=== PATIENT | female | born 1945 | race Caucasian/White ===

== ENCOUNTER 2017-03-25 16:07 | Observation (INO) | payer OTHER ==
--- NOTE | 2017-03-25 16:24 | PDOC ---
History of Present Illness - General Chief Complaint: Chest Pain Stated Complaint: CHEST PAIN, LT SIDE NUMBNESS Time Seen by Provider: 03/25/17 16:23 Past History - Past Medical History Allergies/Adverse Reactions: Allergies Allergy/AdvReac Type Severity Reaction Status Date / Time No Known Allergies Allergy Verified 03/25/17 16:10 Home Medications: Ambulatory Orders Acetaminophen [Tylenol .Regular Strength -] 650 mg PO Q6H PRN 03/26/17 Alendronate Sodium [Binosto] 70 mg PO ASDIR 03/26/17 Amlodipine Bes/Olmesartan Med [Felisha 10-40 mg Tablet] 1 each PO DAILY 03/26/17 Aspirin [ASA -] 81 mg PO DAILY 03/26/17 Benzonatate 200 mg PO TID PRN 03/26/17 Calcium Carbonate [Oysco-500] 500 mg PO BID 03/26/17 Hydroxyurea [Hydrea] 500 mg PO ASDIR 03/26/17 Linagliptin/Metformin HCl [Jentadueto 2.5 mg-1000 mg Tab] 1 each PO ASDIR Multivit-Min/Iron Fum/Folic AC [Fjpda-Muojrfp-Cxprpxiq Tablet] 1 each PO DAILY 03/26/17 Aspirin [ASA -] 81 mg PO DAILY tab.chew 03/28/17 Atorvastatin Ca [Lipitor] 40 mg PO HS #30 tablet 03/28/17 Carvedilol [Coreg -] 3.125 mg PO BID #60 tablet 03/28/17 Hydralazine HCl [Apresoline -] 10 mg PO TID #90 tablet 03/28/17 Hydroxyurea [Hydrea 500Mg Capsule -] 500 mg PO MOWEFR@1000,2200 #30 tab Valsartan [Diovan] 320 mg PO DAILY #90 tablet 03/28/17 Valsartan [Diovan] 320 mg PO DAILY #90 tablet 03/28/17 Cancer: Yes (left breast mass 2007) Diabetes: Yes HTN: Yes - Psycho/Social/Smoking Cessation Hx Anxiety: No Suicidal Ideation: No Smoking History: Never smoked Have you smoked in the past 12 months: No Information on smoking cessation initiated: No Hx Alcohol Use: No Drug/Substance Use Hx: No Substance Use Type: None Hx Substance Use Treatment: No *Physical Exam - Vital Signs Last Vital Signs Temp Pulse Resp BP Pulse Ox 98.0 F 85 18 170/81 100 03/25/17 16:10 03/25/17 16:10 03/25/17 16:10 03/25/17 16:10 03/25/17 16:10 ED Treatment Course - LABORATORY CBC & Chemistry Diagram: 03/28/17 05:57 03/28/17 05:57 *DC/Admit/Observation/Transfer Diagnosis at time of Disposition: Chest pain Qualifiers: Chest pain type: unspecified Qualified Code(s): R07.9 - Chest pain, unspecified - Discharge Dispostion Disposition: HOME Condition at time of disposition: Stable - Prescriptions - Attestations Physician Attestion: 03/25/17 16:24 I, Dr. Tadeo Hagan, attest that this document has been prepared under my direction and personally reviewed by me in its entirety. I further attest, that it accurately reflects all work, treatment, procedures and medical decision -making performed by me.
--- NOTE | 2017-03-25 16:26 | PDOC ---
History of Present Illness - General History Source: Patient - History of Present Illness Presenting Symptoms: Chest Pain Timing/Duration: reports: intermittent Chest Pain Radiation: reports: back Activities at Onset: reports: rest <Phyllis Childress - Last Filed: 03/25/17 19:01> <Zach Dillon - Last Filed: 03/25/17 19:57> - General Chief Complaint: Chest Pain Stated Complaint: CHEST PAIN, LT SIDE NUMBNESS Time Seen by Provider: 03/25/17 16:23 Past History - Past Medical History Cancer: Yes (left breast mass 2007) Diabetes: Yes HTN: Yes - Psycho/Social/Smoking Cessation Hx Anxiety: No Suicidal Ideation: No Smoking History: Never smoked Have you smoked in the past 12 months: No Information on smoking cessation initiated: No Hx Alcohol Use: No Drug/Substance Use Hx: No Substance Use Type: None Hx Substance Use Treatment: No <Phyllis Childress Last Filed: 03/25/17 19:01> <Zach Dillon - Last Filed: 03/25/17 19:57> - Past Medical History Allergies/Adverse Reactions: Allergies Allergy/AdvReac Type Severity Reaction Status Date / Time No Known Allergies Allergy Verified 03/25/17 16:10 Home Medications: Ambulatory Orders Acetaminophen [Tylenol .Regular Strength -] 325 mg PO Q6H PRN 01/12/13 Amlodipine Besylate/Benazepril [Lotrel 5-20 mg Capsule] 1 cap PO DAILY 01/12/13 Aspirin 81 mg PO DAILY 01/12/13 Fenofibric Acid [Trilipix -] 135 mg PO DAILY 01/12/13 Hydroxyurea [Hydrea] 500 mg PO DAILY 01/12/13 Sitagliptin Phosphate [Januvia] 1 tab PO BID 01/12/13 Amoxicillin/Potassium Clav [Augmentin 875-125 Tablet] 1 each PO BID #8 tablet Azithromycin 250 mg PO DAILY #2 tablet 01/19/15 Review of Systems - Review of Systems Constitutional: No: Chills, Fever Respiratory: No: Cough, Shortness of Breath Cardiac (ROS): Yes: Chest Pain. No: Lightheadedness, Palpitations ABD/GI: No: Nausea, Vomiting <Phyllis Childress Last Filed: 03/25/17 19:01> *Physical Exam - Physical Exam General Appearance: Yes: Appropriately Dressed. No: Apparent Distress HEENT: positive: Normal Voice Neck: positive: Supple Respiratory/Chest: positive: Lungs Clear, Normal Breath Sounds. negative: Respiratory Distress Cardiovascular: positive: Regular Rate, S1, S2 Gastrointestinal/Abdominal: positive: Soft. negative: Tender Extremity: positive: Normal Inspection. negative: Pedal Edema Integumentary: positive: Dry, Warm Neurologic: positive: Fully Oriented, Alert, Normal Mood/Affect <Phyllis Childress - Last Filed: 03/25/17 19:01> - Vital Signs Last Vital Signs Temp Pulse Resp BP Pulse Ox 98.0 F 85 18 170/81 100 03/25/17 16:10 03/25/17 16:10 03/25/17 16:10 03/25/17 16:10 03/25/17 16:10 ED Treatment Course - LABORATORY CBC & Chemistry Diagram: 03/25/17 16:37 03/25/17 16:37 <Phyllis Childress - Last Filed: 03/25/17 19:01> - LABORATORY CBC & Chemistry Diagram: 03/25/17 16:37 03/25/17 16:37 <Zach Dillon - Last Filed: 03/25/17 19:57> - ADDITIONAL ORDERS Additional order review: Laboratory Results 03/25/17 03/25/17 16:37 16:37 Sodium 138 Potassium 4.5 Chloride 102 Carbon Dioxide 27 Anion Gap 9 BUN 19 H D Creatinine 1.1 H D Creat Clearance w eGFR 48.69 Random Glucose 243 H Calcium 8.7 Total Bilirubin 0.4 D AST 14 L ALT 21 D Alkaline Phosphatase 72 D Creatine Kinase 55 Troponin I < 0.02 B-Natriuretic Peptide 322.21 H Total Protein 7.8 D Albumin 4.1 D 03/25/17 16:37 RBC 3.03 L MCV 104.8 H MCHC 32.1 RDW 19.8 H D MPV 9.0 Neutrophils % 82.0 D Lymphocytes % 9.8 D Monocytes % 3.7 L Eosinophils % 2.2 Basophils % 2.3 H Medical Decision Making <Phyllis Childress - Last Filed: 03/25/17 19:01> <Zach Dillon - Last Filed: 03/25/17 19:57> - Medical Decision Making 03/25/17 16:25 71 yo F, HTN, HLD, essential thrombocytosis on hydroxyurea, breast ca, NIDDM, PNA, here w/ CP. Patient reports left-sided chest pain radiating to back, unable to describe, with an intensity of 5 out of 10 that lasts for 1 minute and then resolves. States symptoms recurred 2-3 times today. No exacerbating/ alleviating factors. Also reports feeling tired. No shortness of breath, diaphoresis, nausea, vomiting, palpitations, leg pain or swelling. States she' s had similar pain in the past. Denies any CAD. Denies any cp at present See exam CP intermittent, since resolved BP 170/81, stable otherwise and well yen w/ unremarkable exam R/o ACS vs PE, less likely dissection or PNA -ekg -asa -cxr -labs -dispo pending 03/25/17 17:04 03/25/17 17:40 ?TWI in leads V2-3 compared to prior ekg, as d/w ED attg. Trop pending. Anticipate admission to OBs for am stress 03/25/17 18:24 Case d/w hospitalist and pending trop, pt to go to tele obs. Discussed ? CTA r/ o PE w/ hospitalist given pt's hx of cancer and thromobocytosis, as per , will hold off for now 03/25/17 19:01 (Phyllis Childress) *DC/Admit/Observation/Transfer <Phyllis Childress - Last Filed: 03/25/17 19:01> - Discharge Dispostion Admit: Yes <Zach Dillon - Last Filed: 03/25/17 19:57> Diagnosis at time of Disposition: Chest pain Qualifiers: Chest pain type: unspecified Qualified Code(s): R07.9 - Chest pain, unspecified - Discharge Dispostion Condition at time of disposition: Stable
[2017-03-25 17:13] LABS: BASOPHIL 2.3 % (0-2.0); EOSINOPHIL 2.2 % (0-4.5); MCH 33.7 pg (25.7-33.7); MCHC 32.1 g/dl (32.0-36.0); MEAN CELL VOLUME 104.8 fl (80-96); PLATELET COUNT 531 K/MM3 (134-434); RDW 19.8 % (11.6-15.6); WHITE BLOOD COUNT 6.7 K/mm3 (4.0-10.0)
[2017-03-25 19:00] LABS: ANISOCYTOSIS 1+; PLATELET ESTIMATE SLT INCREASED (NORMAL); POLYCHROMASIA OCC
[2017-03-25 19:26] LABS: ALBUMIN 4.1 g/dl (3.4-5.0); ANION GAP 9 (8-16); BILIRUBIN,TOTAL 0.4 mg/dL (0.2-1.0); CALCIUM 8.7 mg/dL (8.5-10.1); CO2 27 mmol/L (21-32); CREATININE 1.1 mg/dL (0.55-1.02); GLUCOSE,RANDOM 243 mg/dL (74-106); SGOT/AST 14 U/L (15-37); SGPT/ALT 21 U/L (12-78); TOT PROT 7.8 g/dl (6.4-8.2)
[2017-03-25 19:29] LABS: ALK PHOS 72 U/L (45-117); TROPONIN I < 0.02 ng/ml (0.00-0.05)
--- NOTE | 2017-03-25 19:58 | HP ---
CHIEF COMPLAINT: Chest Pain, L- sided weakness PCP: HISTORY OF PRESENT ILLNESS: This is a 71 y/o female with a past medical history of Hypertension, HLD, DM, L - Breast Ca ( RT, lobectomy x2), Essential Thrombocythemia (on Hydroxyurea). Who presents to the emergency department with midsternal chest pain and left arm weakness since 2pm today. 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 Patient describes the chest pain as sharp, throbbing, with SOB. Patient reports the pain began after she ate while sitting at rest she states" It felt like the pain I had when my blood counts were up". Patient reports feeling weakness in her left arm- now resolved. Patient reports completing Azithromycin today for ?Bronchitis. Patient denies fever, chills, AP, N/V/D, constipation, dysuria. ER course was notable for: (1) Troponin I < 0.02 (2) EKG NSR 79 BPM TWI V2 V3 (3) Chest Xray- Recent Travel: None PAST MEDICAL HISTORY: See HPI PAST SURGICAL HISTORY: L- lumpectomy x2 Social History: Smoking: Never Alcohol: None Drugs: None Lives with family, not working Family History: Father- CVA, Mother -Dementia, Allergies No Known Allergies Allergy (Verified 03/25/17 16:10) HOME MEDICATIONS: Home Medications Medication Instructions Recorded Acetaminophen [Tylenol .Regular 325 mg PO Q6H PRN 01/12/13 Strength -] Amlodipine Besylate/Benazepril 1 cap PO DAILY 01/12/13 [Lotrel 5-20 mg Capsule] Aspirin 81 mg PO DAILY 01/12/13 Fenofibric Acid [Trilipix -] 135 mg PO DAILY 01/12/13 Hydroxyurea [Hydrea] 500 mg PO DAILY 01/12/13 Sitagliptin Phosphate [Januvia] 1 tab PO BID 01/12/13 Amoxicillin/Potassium Clav 1 each PO BID #8 tablet 01/19/15 [Augmentin 875-125 Tablet] Azithromycin 250 mg PO DAILY #2 tablet 01/19/15 REVIEW OF SYSTEMS CONSTITUTIONAL: Absent: fever, chills, diaphoresis, generalized weakness, malaise, loss of appetite, weight change HEENT: Absent: rhinorrhea, nasal congestion, throat pain, throat swelling, difficulty swallowing, mouth swelling, ear pain, eye pain, visual changes CARDIOVASCULAR: chest pain Absent: syncope, palpitations, irregular heart rate, lightheadedness, peripheral edema RESPIRATORY: shortness of breath Absent: cough, dyspnea with exertion, orthopnea, wheezing, stridor, hemoptysis GASTROINTESTINAL: Absent: abdominal pain, abdominal distension, nausea, vomiting, diarrhea, constipation, melena, hematochezia GENITOURINARY: Absent: dysuria, frequency, urgency, hesitancy, hematuria, flank pain, genital pain MUSCULOSKELETAL: Absent: myalgia, arthralgia, joint swelling, back pain, neck pain SKIN: Absent: rash, itching, pallor HEMATOLOGIC/IMMUNOLOGIC: Absent: easy bleeding, easy bruising, lymphadenopathy, frequent infections ENDOCRINE: Absent: unexplained weight gain, unexplained weight loss, heat intolerance, cold intolerance NEUROLOGIC: Absent: headache, focal weakness or paresthesias, dizziness, unsteady gait, seizure, mental status changes, bladder or bowel incontinence PSYCHIATRIC: Absent: anxiety, depression, suicidal or homicidal ideation, hallucinations. PHYSICAL EXAMINATION Vital Signs - 24 hr 03/25/17 16:10 Temperature 98.0 F Pulse Rate 85 Respiratory 18 Rate Blood Pressure 170/81 O2 Sat by Pulse 100 Oximetry (%) GENERAL: Awake, alert, and fully oriented, in no acute distress. HEAD: Normal with no signs of trauma. EYES: Pupils equal, round and reactive to light, extraocular movements intact, sclera anicteric, conjunctiva clear. No lid lag. EARS, NOSE, THROAT: Ears normal, nares patent, oropharynx clear without exudates. Dry mucous membranes. NECK: Normal range of motion, supple without lymphadenopathy, JVD, or masses. LUNGS: Breath sounds equal, clear to auscultation bilaterally. No wheezes, and no crackles. No accessory muscle use. HEART: Regular rate and rhythm, normal S1 and S2 without murmur, rub or gallop. ABDOMEN: Soft, nontender, not distended, normoactive bowel sounds, no guarding, no rebound, no masses. No hepatomegaly or splenomegaly. MUSCULOSKELETAL: Normal range of motion at all joints. No bony deformities or tenderness. No CVA tenderness. UPPER EXTREMITIES: 2+ pulses, warm, well-perfused. No cyanosis. No clubbing. No peripheral edema. LOWER EXTREMITIES: 2+ pulses, warm, well-perfused. No calf tenderness. +1 pitting LLE peripheral edema. NEUROLOGICAL: Cranial nerves II-XII intact. Normal speech. Gait not observed. PSYCHIATRIC: Cooperative. Good eye contact. Appropriate mood and affect. SKIN: Warm, dry, normal turgor, no rashes or lesions noted, normal capillary refill. Laboratory Results - last 24 hr 03/25/17 03/25/17 03/25/17 16:37 16:37 16:37 WBC 6.7 D RBC 3.03 L Hgb 10.2 L Hct 31.7 L MCV 104.8 H MCHC 32.1 RDW 19.8 H D Plt Count 531 H MPV 9.0 Neutrophils % 82.0 D Lymphocytes % 9.8 D Monocytes % 3.7 L Eosinophils % 2.2 Basophils % 2.3 H Differential Comment Slide scanned Platelet Estimate Slt increased Polychromasia Occ Anisocytosis 1+ Macrocytosis 1+ Sodium 138 Potassium 4.5 Chloride 102 Carbon Dioxide 27 Anion Gap 9 BUN 19 H D Creatinine 1.1 H D Creat Clearance w eGFR 48.69 Random Glucose 243 H Calcium 8.7 Total Bilirubin 0.4 D AST 14 L ALT 21 D Alkaline Phosphatase 72 D Creatine Kinase 55 Troponin I < 0.02 B-Natriuretic Peptide 322.21 H Total Protein 7.8 D Albumin 4.1 D ASSESSMENT/PLAN: This is a 71 y/o female with a PMHx of: HTN, HLD, Hypothyroidism. Placed in Tele Observation for further evaluation of their emergent condition. Plan: 1. Chest Pain r/o ME - Tele Monitoring - HEART Score 6 - JENNI Score 4 - EKG reviewed TWI in V2, V3 - CXR reviewed - Appreciate Cardiology Consult - Serial Enzymes neg x1 - Trend CE x2 - Echo in am - Asa 162mg given now (Asa 81mg taken at home) - HgbA1C, Lipid Panel in am 2. Hypertension - Sub Optimal - Monitor BP - Continue Bystolic, Norvasc, Diovan (substitute for Olemasartan) - Monitor renal function 3. Diabetes Mellitus - Not controlled - BGMs - ISS - Hold home med for better glycemic control - HgbA1C in am 4. Hypothyroidism - Continue Levothyroxine - TSH in am 5. Essential Thrombocythemia - Continue Hydroxyurea 6. FEN - Tolerates PO Fluids - Replete lytes prn - Low Na, Diabetic Diet 7. DVT Prophylaxis - OOB - SCDs Code Status: Full Code Problem List - Problem (1) Chest pain Code(s): R07.9 - CHEST PAIN, UNSPECIFIED Qualifiers: Qualified Code(s): R07.9 - Chest pain, unspecified (2) HTN (hypertension) Code(s): I10 - ESSENTIAL (PRIMARY) HYPERTENSION (3) Diabetes mellitus Code(s): E11.9 - TYPE 2 DIABETES MELLITUS WITHOUT COMPLICATIONS (4) Hyperlipidemia Code(s): E78.5 - HYPERLIPIDEMIA, UNSPECIFIED (5) Essential thrombocytosis Code(s): D47.3 - ESSENTIAL (HEMORRHAGIC) THROMBOCYTHEMIA (6) Osteoarthritis Code(s): M19.90 - UNSPECIFIED OSTEOARTHRITIS, UNSPECIFIED SITE (7) History of breast cancer Code(s): Z85.3 - PERSONAL HISTORY OF MALIGNANT NEOPLASM OF BREAST (8) DVT prophylaxis Code(s): DCO9896 - Visit type - Emergency Visit Emergency Visit: Yes ED Registration Date: 03/25/17 Care time: The patient presented to the Emergency Department on the above date and was hospitalized for further evaluation of their emergent condition. - New Patient This patient is new to me today: Yes Date on this admission: 03/25/17 - Critical Care Critical Care patient: No
[2017-03-25] MEDS ORDERED: ASPIRIN 81 MG CHEWABLE TABLETS PO ONE (21:25)
[2017-03-25] MEDS ORDERED: ASPIRIN 81 MG CHEWABLE TABLETS ONE (21:54)
[2017-03-25] MEDS: INSULIN SLIDING SCALE (NOVOLOG) 1 VIAL SQ SCH (23:13)
[2017-03-26] MEDS ORDERED: NEBIVOLOL 5 MG TABLET (FP) PO ONE (00:17)
[2017-03-26] MEDS ORDERED: guaiFENesin/D-M SUGAR-FREE/ACLHOL-FREE 118 ML BOTTLE PO PRN (00:30)
[2017-03-26 00:31] LABS: TROPONIN I < 0.02 ng/ml (0.00-0.05)
[2017-03-26] MEDS ORDERED: ACETAMINOPHEN 325 MG TABLET (FP) PO PRN (00:32)
[2017-03-26 05:33] LABS: BASOPHIL 0.6 % (0-2.0); EOSINOPHIL 2.8 % (0-4.5); MCH 33.4 pg (25.7-33.7); MCHC 32.4 g/dl (32.0-36.0); MEAN CELL VOLUME 103.4 fl (80-96); MEAN PLT VOLUME 8.6 fl (7.5-11.1); NEUTROPHILS 78.5 % (42.8-82.8); PLATELET COUNT 396 K/MM3 (134-434); RDW 19.3 % (11.6-15.6); WHITE BLOOD COUNT 4.9 K/mm3 (4.0-10.0)
[2017-03-26 06:05] LABS: ANION GAP 7 (8-16); CALCIUM 8.5 mg/dL (8.5-10.1); CO2 30 mmol/L (21-32); CREATININE 1.1 mg/dL (0.55-1.02); GLUCOSE,RANDOM 138 mg/dL (74-106); PHOSPHOROUS 3.7 mg/dL (2.5-4.9)
[2017-03-26 06:10] LABS: TROPONIN I < 0.02 ng/ml (0.00-0.05)
[2017-03-26] MEDS: INSULIN SLIDING SCALE (NOVOLOG) 1 VIAL SQ SCH ×3 (06:29→22:46)
[2017-03-26 06:58] LABS: CHOLESTEROL 106 mg/dL (50-200); LDL CHOLESTEROL (ONLY SJRH) 43 mg/dL (5-100)
[2017-03-26] MEDS: VALSARTAN 160 MG TABLET (UD) PO SCH (10:18)
[2017-03-26] MEDS: ASPIRIN 81 MG CHEWABLE TABLETS PO SCH (10:18)
[2017-03-26] MEDS: NEBIVOLOL 5 MG TABLET (FP) PO SCH (10:18)
[2017-03-26] MEDS: HYDROXYUREA 500 MG CAPSULE PO SCH (10:19)
[2017-03-26] MEDS: MULTIVITAMINS (DAILY MVI) TABLET (FP) PO SCH (10:19)
[2017-03-26] MEDS: amLODIPine BESYLATE 10 MG TABLET (FP) PO SCH (10:19)
[2017-03-26 17:09] VITALS: BMI 21.4
--- NOTE | 2017-03-26 17:44 | CON.CARD ---
Cardiology Consult (text) - Consultation Consultation Note: CC: CP 71 y/o with h/o htn, HLD, DM, L- Breast Ca s/p xrt and surgery, Essential Thrombocytosis (on Hydroxyurea) who p/w CP. endorses chronic episodes of dyspnea lasting about 5 minutes, non-exertional stable. Have occurred since her surgery for breast CA. endorses intermittent chest heaviness sometimes associated with breathing difficulty, non-exertional On presentation had more severe episode of chest heaviness with radiation down left arm. + associated dyspnea. Had 3 episodes each lasting about 5 minutes. Currently CP free. No episodes since yesterday. No johns, can walk up a flight of stairs without anginal symptoms. no orthopnea, pnd, le edema, palps, dizziness. bleeding. Patient denies fever, chills, sweats, AP, N/V/D, cough, congestion, visual disturbances PAST MEDICAL HISTORY/PAST SURGICAL HISTORY: per hpi, L- lumpectomy x2 Social History: Smoking: Never Alcohol: None Drugs: None Lives with family, not working Family History: Father- CVA, Mother -Dementia, ROS: per hpi Ambulatory Orders Acetaminophen [Tylenol -] 650 mg PO Q6H PRN 03/26/17 Alendronate Sodium [Binosto] 70 mg PO ASDIR 03/26/17 Amlodipine Bes/Olmesartan Med [Felisha 10-40 mg Tablet] 1 each PO DAILY 03/26/17 Aspirin [ASA -] 81 mg PO DAILY 03/26/17 Benzonatate 200 mg PO TID PRN 03/26/17 Calcium Carbonate [Oysco-500] 500 mg PO BID 03/26/17 Hydroxyurea [Hydrea] 500 mg PO ASDIR 03/26/17 Linagliptin/Metformin HCl [Jentadueto 2.5 mg-1000 mg Tab] 1 each PO ASDIR Multivit-Min/Iron Fum/Folic AC [Lszbd-Lnyevsq-Akmusxjf Tablet] 1 each PO DAILY 03/26/17 Nebivolol HCl [Bystolic] 5 mg PO DAILY 03/26/17 Current Medications Acetaminophen (Tylenol -) 650 mg PO Q6H PRN PRN Reason: FEVER OR PAIN Amlodipine Besylate (Norvasc -) 10 mg PO DAILY JULIA Last Admin: 03/26/17 10:19 Dose: 10 mg Aspirin (Asa -) 81 mg PO DAILY [facility] Last Admin: 03/26/17 10:18 Dose: 81 mg Guaifenesin (Diabetic Tussin Dm -) 10 ml PO Q6H PRN PRN Reason: COUGH Hydroxyurea (Hydrea -) 500 mg PO SuTuThSa@1000 [facility] Last Admin: 03/26/17 10:19 Dose: 500 mg Hydroxyurea (Hydrea -) 500 mg PO MOWEFR@1000,2200 [facility] Insulin Aspart (Novolog Vial Sliding Scale -) 1 vial SQ ACHS [facility] PRN Reason: Protocol Last Admin: 03/26/17 17:26 Dose: 2 units Multivitamins/Minerals/Vitamin C (Tab-A-Vit -) 1 tab PO DAILY [facility] Last Admin: 03/26/17 10:19 Dose: 1 tab Nebivolol (Bystolic -) 5 mg PO DAILY [facility] Last Admin: 03/26/17 10:18 Dose: 5 mg Valsartan (Diovan -) 320 mg PO DAILY [facility] Last Admin: 03/26/17 10:18 Dose: 320 mg Vital Signs - 24 hr 03/25/17 03/25/17 03/26/17 22:00 23:09 01:19 Temperature 98.0 F 98.0 F 98.1 F Pulse Rate Pulse Rate [ 73 70 76 Right Radial] Respiratory 20 20 19 Rate Blood Pressure Blood Pressure 142/73 140/80 134/70 [Left Arm] O2 Sat by Pulse 95 95 95 Oximetry (%) 03/26/17 03/26/17 03/26/17 05:17 06:20 07:05 Temperature 98 F 98.2 F Pulse Rate Pulse Rate [ 70 68 Right Radial] Respiratory 20 20 20 Rate Blood Pressure Blood Pressure 123/70 138/70 [Left Arm] O2 Sat by Pulse 95 95 95 Oximetry (%) 03/26/17 03/26/17 03/26/17 08:28 12:31 15:58 Temperature 97.8 F 97.8 F Pulse Rate 74 Pulse Rate [ 68 61 Right Radial] Respiratory 18 18 18 Rate Blood Pressure 155/59 Blood Pressure 165/72 148/68 [Left Arm] O2 Sat by Pulse 97 97 94 L Oximetry (%) Intake & Output 03/24/17 03/25/17 03/26/17 03/27/17 07:59 07:59 07:59 07:59 Weight 104 lb 121 lb nad, calm jvd flat, neck supple ctab, nl effort RRR nl s1 s2 no mrg no ttp of sternum + bs soft nt nd ext without e/c/c no carotid bruits aaox3 no jaundice, diaphoresis CBC, BMP 03/26/17 05:30 03/26/17 05:30 Laboratory Tests 03/25/17 03/25/17 03/25/17 16:37 16:37 23:35 Hemoglobin A1c % Magnesium Total Bilirubin 0.4 D AST 14 L ALT 21 D Alkaline Phosphatase 72 D Creatine Kinase 55 39 Troponin I < 0.02 < 0.02 B-Natriuretic Peptide 322.21 H Albumin 4.1 D Triglycerides Cholesterol Total LDL Cholesterol HDL Cholesterol 03/26/17 03/26/17 03/26/17 05:30 05:30 05:30 Hemoglobin A1c % 7.1 H Magnesium 2.0 Total Bilirubin AST ALT Alkaline Phosphatase Creatine Kinase 35 Troponin I < 0.02 B-Natriuretic Peptide Albumin Triglycerides Cholesterol Total LDL Cholesterol HDL Cholesterol 03/26/17 05:30 Hemoglobin A1c % Magnesium Total Bilirubin AST ALT Alkaline Phosphatase Creatine Kinase Troponin I B-Natriuretic Peptide Albumin Triglycerides 369 H Cholesterol 106 Total LDL Cholesterol 43 HDL Cholesterol 24 L EKG: SR, leftward axis. no ischemic changes tele: SR. 71 y/o with h/o htn, HLD, DM, L- Breast Ca s/p xrt and surgery, Essential Thrombocytosis (on Hydroxyurea) who p/w CP. CP - CE's neg x 3. EKG unremarkable. symptoms atypical for cardiac pain, but given risk factors agree with pursuing stress testing. echo and stress test already ordered by primary team. - Con't asa. LDL 43 would not benefit from statin therapy. elevated tg's. --> diabetes management per pmd. Will switch bystolic to carvedilol. Can consider lovaza. htn - medication adjustments as mentioned. hypertriglyceridemia - plan outlined above.
--- NOTE | 2017-03-26 21:48 | PN ---
Physical Exam: SUBJECTIVE: Patient seen and examined. Denies chest pain, SOB, palpitations. OBJECTIVE: Vital Signs Period Temp Pulse Resp BP Sys/Mazariegos Pulse Ox Last 24 Hr 97.8 F-98.2 F 61-76 18-20 123-165/59-80 94-97 GENERAL: The patient is awake, alert, and fully oriented, in no acute distress. LUNGS: Breath sounds equal, clear to auscultation bilaterally, no wheezes, no crackles, no accessory muscle use. HEART: Regular rate and rhythm, S1, S2 without murmur, rub or gallop. ABDOMEN: Soft, nontender, nondistended, normoactive bowel sounds, no guarding, no rebound EXTREMITIES: 2+ pulses, warm, well-perfused, trace pedal edema NEUROLOGICAL: Cranial nerves II through XII grossly intact. Normal speech, gait not observed. Laboratory Results - last 24 hr 03/25/17 03/26/17 03/26/17 23:35 05:24 05:30 WBC RBC Hgb Hct MCV MCHC RDW Plt Count MPV Neutrophils % Lymphocytes % Monocytes % Eosinophils % Basophils % Sodium Potassium Chloride Carbon Dioxide Anion Gap BUN Creatinine POC Glucometer [phone] Random Glucose Hemoglobin A1c % Calcium Phosphorus Magnesium Creatine Kinase 39 35 Troponin I < 0.02 < 0.02 Triglycerides Cholesterol Total LDL Cholesterol HDL Cholesterol 03/26/17 03/26/17 03/26/17 05:30 05:30 05:30 WBC 4.9 RBC 2.79 L Hgb 9.3 L Hct 28.9 L MCV 103.4 H MCHC 32.4 RDW 19.3 H Plt Count 396 D MPV 8.6 Neutrophils % 78.5 Lymphocytes % 13.8 D Monocytes % 4.3 Eosinophils % 2.8 Basophils % 0.6 Sodium 141 Potassium 4.0 Chloride 104 Carbon Dioxide 30 Anion Gap 7 L BUN 24 H D Creatinine 1.1 H POC Glucometer Random Glucose 138 H D Hemoglobin A1c % 7.1 H Calcium 8.5 Phosphorus 3.7 Magnesium 2.0 Creatine Kinase Troponin I Triglycerides Cholesterol Total LDL Cholesterol HDL Cholesterol 03/26/17 03/26/17 03/26/17 05:30 12:39 17:25 WBC RBC Hgb Hct MCV MCHC RDW Plt Count MPV Neutrophils % Lymphocytes % Monocytes % Eosinophils % Basophils % Sodium Potassium Chloride Carbon Dioxide Anion Gap BUN Creatinine POC Glucometer [phone] Random Glucose Hemoglobin A1c % Calcium Phosphorus Magnesium Creatine Kinase Troponin I Triglycerides 369 H Cholesterol 106 Total LDL Cholesterol 43 HDL Cholesterol 24 L Active Medications Generic Name Dose Route Start Last Admin Trade Name Claudine PRN Reason Stop Dose Admin Acetaminophen 650 mg 03/26/17 00:32 Tylenol - PO Q6H PRN FEVER OR PAIN Amlodipine Besylate 10 mg 03/26/17 10:00 03/26/17 10:19 Norvasc - PO 10 mg DAILY JULIA Administration Aspirin 81 mg 03/26/17 10:00 03/26/17 10:18 Asa - PO 81 mg DAILY JULIA Administration Guaifenesin 10 ml 03/26/17 00:30 Diabetic Tussin Dm - PO Q6H PRN COUGH Hydroxyurea 500 mg 03/26/17 10:00 03/26/17 10:19 Hydrea - PO 500 mg SuTuThSa@1000 JULIA Administration Hydroxyurea 500 mg 03/28/17 10:00 Hydrea - PO MOWEFR@1000,2200 JULIA Insulin Aspart 1 vial 03/25/17 22:00 03/26/17 17:26 Novolog Vial Sliding Scale - SQ 2 units ACHS JULIA Administration Protocol Multivitamins/Minerals/Vitamin C 1 tab 03/26/17 10:00 03/26/17 10:19 Tab-A-Vit - PO 1 tab DAILY JULIA Administration Nebivolol 5 mg 03/26/17 10:00 03/26/17 10:18 Bystolic - PO 5 mg DAILY JULIA Administration Valsartan 320 mg 03/26/17 10:00 03/26/17 10:18 Diovan - PO 320 mg DAILY JULIA Administration ASSESSMENT/PLAN: 71 year-old female with a PMH of HTN, HLD, NIDDM, hypothyroidism, breast cancer (radiation, lobectomy x 2), essential thrombocytosis. Just finished zpak for bronchitis. Chest pain --r/o ACS: troponins negative x 3; ECG not suggestive of acute ischemic event ; echo ordered; stress test ordered if cardiology deems necessary --r/o infection: afebrile, no leukocytosis, no discrete infiltrates on CXR; observe off antibiotics --r/o PE: Wells score 0, low suspicion for PE, no further workup indicated Hypertension --serial readings have been elevated --start hydralazine 10mg TID --continue valsartan, bystolic Hyperlipidemia --start Lipitor 40mg NIDDM --Novolog sliding scale coverage Hypothyroidism --not on medication --check TSH Breast cancer --no acute issues Essential thrombocytosis --continue hydroxyurea F/E/N Fluids: PO intake adequate Electrolytes: replete as indicated Nutrition: low sodium DVT prophylaxis: subq heparin, oob, ambulation Dispo: continues to require inpatient care. Full Code. Visit type - Emergency Visit Emergency Visit: Yes ED Registration Date: 03/25/17 Care time: The patient presented to the Emergency Department on the above date and was hospitalized for further evaluation of their emergent condition. - New Patient This patient is new to me today: Yes Date on this admission: 03/26/17 - Critical Care Critical Care patient: No
[2017-03-26] MEDS ORDERED: ATORVASTATIN CA 40 MG TABLET (FP) PO SCH (22:00)
[2017-03-26] MEDS: HEPARIN NA (PORCINE) 5,000 UNITS/ML 1ML VIAL SQ SCH (22:45)
[2017-03-26] MEDS: hydrALAZINE HCL 10 MG TABLET PO SCH (22:46)
[2017-03-27] MEDS: hydrALAZINE HCL 10 MG TABLET PO SCH ×3 (06:39→21:18)
[2017-03-27] MEDS: INSULIN SLIDING SCALE (NOVOLOG) 1 VIAL SQ SCH ×4 (06:39→21:22)
[2017-03-27 07:41] LABS: MCH 34.3 pg (25.7-33.7); MCHC 33.3 g/dl (32.0-36.0); MEAN CELL VOLUME 103.1 fl (80-96); MEAN PLT VOLUME 9.2 fl (7.5-11.1); PLATELET COUNT 391 K/MM3 (134-434); RDW 18.9 % (11.6-15.6); WHITE BLOOD COUNT 4.9 K/mm3 (4.0-10.0)
[2017-03-27 08:11] LABS: ALBUMIN 3.6 g/dl (3.4-5.0); ANION GAP 8 (8-16); BILIRUBIN,TOTAL 0.5 mg/dL (0.2-1.0); CALCIUM 8.3 mg/dL (8.5-10.1); CO2 28 mmol/L (21-32); GLUCOSE,RANDOM 212 mg/dL (74-106); MAGNESIUM 1.9 mg/dL (1.8-2.4); SGOT/AST 13 U/L (15-37); SGPT/ALT 17 U/L (12-78); TOT PROT 6.7 g/dl (6.4-8.2)
[2017-03-27 08:19] LABS: ALK PHOS 63 U/L (45-117); THYROID STIMULATING HORMONE 0.49 uIU/ml (0.358-3.74)
[2017-03-27] MEDS: MULTIVITAMINS (DAILY MVI) TABLET (FP) PO SCH (09:10)
[2017-03-27] MEDS: VALSARTAN 160 MG TABLET (UD) PO SCH (09:10)
[2017-03-27] MEDS: ASPIRIN 81 MG CHEWABLE TABLETS PO SCH (09:10)
[2017-03-27] MEDS: NEBIVOLOL 5 MG TABLET (FP) PO SCH (09:10)
[2017-03-27] MEDS: amLODIPine BESYLATE 10 MG TABLET (FP) PO SCH (09:10)
[2017-03-27] MEDS: PANTOPRAZOLE 40 MG TABLET (FP) PO SCH (09:10)
[2017-03-27] MEDS: HEPARIN NA (PORCINE) 5,000 UNITS/ML 1ML VIAL SQ SCH ×2 (09:11→21:18)
[2017-03-27] MEDS: HYDROXYUREA 500 MG CAPSULE PO SCH (09:11)
[2017-03-27 09:39] LABS: ANISOCYTOSIS 1+; HYPOCHROMIA FEW; PLATELET ESTIMATE ADEQUATE (NORMAL); POLYCHROMASIA FEW
[2017-03-27] MEDS ORDERED: INSULIN (NOVOLOG) ASPART 100 UNITS/ML 10ML VIAL ONE (11:37)
--- NOTE | 2017-03-27 14:21 | PN ---
Physical Exam: SUBJECTIVE: Patient seen and examined oob to chair. No chest pain, SOB, palpitations. OBJECTIVE: Vital Signs Period Temp Pulse Resp BP Sys/Mazariegos Pulse Ox Last 24 Hr 97.4 F-98.8 F 62-76 18-20 132-165/59-78 94-99 GENERAL: The patient is awake, alert, and fully oriented, in no acute distress. LUNGS: Breath sounds equal, clear to auscultation bilaterally, no wheezes, no crackles, no accessory muscle use. HEART: Regular rate and rhythm, S1, S2 without murmur, rub or gallop. ABDOMEN: Soft, nontender, nondistended, normoactive bowel sounds, no guarding, no rebound EXTREMITIES: 2+ pulses, warm, well-perfused, trace pedal edema NEUROLOGICAL: Cranial nerves II through XII grossly intact. Normal speech, gait not observed. Laboratory Results - last 24 hr 03/26/17 03/26/17 03/27/17 17:25 22:42 05:35 WBC 4.9 RBC 2.90 L Hgb 10.0 L Hct 29.9 L MCV 103.1 H MCHC 33.3 RDW 18.9 H Plt Count 391 MPV 9.2 Neutrophils % 76.0 Lymphocytes % 18.0 D Monocytes % 4.0 Eosinophils % 2.0 Hypersegmented Neuts 1+ Platelet Estimate Adequate Platelet Comment No clumping noted Polychromasia Few Hypochromic-Microcytic Few Anisocytosis 1+ Macrocytosis 1+ Sodium Potassium Chloride Carbon Dioxide Anion Gap BUN Creatinine Creat Clearance w eGFR POC Glucometer 185 229 Random Glucose Calcium Magnesium Total Bilirubin AST ALT Alkaline Phosphatase Total Protein Albumin TSH 03/27/17 03/27/17 03/27/17 05:35 06:15 11:18 WBC RBC Hgb Hct MCV MCHC RDW Plt Count MPV Neutrophils % Lymphocytes % Monocytes % Eosinophils % Hypersegmented Neuts Platelet Estimate Platelet Comment Polychromasia Hypochromic-Microcytic Anisocytosis Macrocytosis Sodium 139 Potassium 4.6 Chloride 103 Carbon Dioxide 28 Anion Gap 8 BUN 24 H Creatinine 1.0 Creat Clearance w eGFR 54.35 POC Glucometer 239 222 Random Glucose 212 H D Calcium 8.3 L Magnesium 1.9 Total Bilirubin 0.5 D AST 13 L ALT 17 Alkaline Phosphatase 63 Total Protein 6.7 Albumin 3.6 TSH 0.49 Current Medications Generic Name Dose Route Start Last Admin Trade Name Freq PRN Reason Stop Dose Admin Acetaminophen 650 mg 03/26/17 00:32 Tylenol - PO Q6H PRN FEVER OR PAIN Amlodipine Besylate 10 mg 03/26/17 10:00 03/27/17 09:10 Norvasc - PO 10 mg DAILY JULIA Administration Aspirin 81 mg 03/26/17 10:00 03/27/17 09:10 Asa - PO 81 mg DAILY JULIA Administration Carvedilol 3.125 mg 03/28/17 10:00 Coreg - PO BID JULIA Guaifenesin 10 ml 03/26/17 00:30 Diabetic Tussin Dm - PO Q6H PRN COUGH Heparin Sodium (Porcine) 5,000 unit 03/26/17 22:00 03/27/17 09:11 Heparin - SQ 5,000 unit BID JULIA Administration Hydralazine HCl 10 mg 03/26/17 22:00 03/27/17 06:39 Apresoline - PO 10 mg TID JULIA Administration Hydroxyurea 500 mg 03/26/17 10:00 03/27/17 09:11 Hydrea - PO 500 mg SuTuThSa@1000 JULIA Administration Hydroxyurea 500 mg 03/28/17 10:00 Hydrea - PO MOWEFR@1000,2200 [facility] Insulin Aspart 1 vial 03/25/17 22:00 03/27/17 11:42 Novolog Vial Sliding Scale - SQ 4 units ACHS JULIA Administration Protocol Multivitamins/Minerals/Vitamin C 1 tab 03/26/17 10:00 03/27/17 09:10 Tab-A-Vit - PO 1 tab DAILY JULIA Administration Pantoprazole Sodium 40 mg 03/27/17 10:00 03/27/17 09:10 Protonix - PO 40 mg DAILY JULIA Administration Valsartan 320 mg 03/26/17 10:00 03/27/17 09:10 Diovan - PO 320 mg DAILY JULIA Administration ASSESSMENT/PLAN 71 year-old female with a PMH of HTN, HLD, NIDDM, hypothyroidism, breast cancer (radiation, lobectomy x 2), essential thrombocytosis. Just finished zpak for bronchitis. Chest pain --r/o ACS: troponins negative x 3; ECG not suggestive of acute ischemic event ; echo and stress tomorrow; continue ASA, beta angelica --r/o infection: afebrile, no leukocytosis, no discrete infiltrates on CXR; observe off antibiotics --r/o PE: Wells score 0, low suspicion for PE, no further workup indicated Hypertension --BP better controlled with addition of hydralazine --switch bystolic to carvedilol 3.125mg BID --continue valsartan Hyperlipidemia --stop statin since LDL 43 NIDDM --Novolog sliding scale coverage Hypothyroidism --not on medication --TSH wnl Breast cancer --no acute issues Essential thrombocytosis --continue hydroxyurea F/E/N Fluids: PO intake adequate Electrolytes: replete as indicated Nutrition: low sodium DVT prophylaxis: subq heparin, oob, ambulation Dispo: continues to require inpatient care. Full Code. Visit type - Emergency Visit Emergency Visit: Yes ED Registration Date: 03/25/17 Care time: The patient presented to the Emergency Department on the above date and was hospitalized for further evaluation of their emergent condition. - New Patient This patient is new to me today: No - Critical Care Critical Care patient: No
--- NOTE | 2017-03-27 15:12 | PN ---
Progress Note (short form) - Note Progress Note: CC: CP S: no recurrence of cp. no sob, palps, dizziness Current Medications Acetaminophen (Tylenol -) 650 mg PO Q6H PRN PRN Reason: FEVER OR PAIN Amlodipine Besylate (Norvasc -) 10 mg PO DAILY [facility] Last Admin: 03/27/17 09:10 Dose: 10 mg Aspirin (Asa -) 81 mg PO DAILY [facility] Last Admin: 03/27/17 09:10 Dose: 81 mg Carvedilol (Coreg -) 3.125 mg PO BID [facility] Guaifenesin (Diabetic Tussin Dm -) 10 ml PO Q6H PRN PRN Reason: COUGH Heparin Sodium (Porcine) (Heparin -) 5,000 unit SQ BID [facility] Last Admin: 03/27/17 09:11 Dose: 5,000 unit Hydralazine HCl (Apresoline -) 10 mg PO TID [facility] Last Admin: 03/27/17 06:39 Dose: 10 mg Hydroxyurea (Hydrea -) 500 mg PO SuTuThSa@1000 [facility] Last Admin: 03/27/17 09:11 Dose: 500 mg Hydroxyurea (Hydrea -) 500 mg PO MOWEFR@1000,2200 [facility] Insulin Aspart (Novolog Vial Sliding Scale -) 1 vial SQ ACHS [facility] PRN Reason: Protocol Last Admin: 03/27/17 11:42 Dose: 4 units Multivitamins/Minerals/Vitamin C (Tab-A-Vit -) 1 tab PO DAILY [facility] Last Admin: 03/27/17 09:10 Dose: 1 tab Pantoprazole Sodium (Protonix -) 40 mg PO DAILY [facility] Last Admin: 03/27/17 09:10 Dose: 40 mg Valsartan (Diovan -) 320 mg PO DAILY [facility] Last Admin: 03/27/17 09:10 Dose: 320 mg Vital Signs - 24 hr 03/26/17 03/26/17 03/26/17 15:58 17:00 21:00 Temperature 97.8 F 98.0 F 98.6 F Pulse Rate 74 76 74 Respiratory 18 18 20 Rate Blood Pressure 155/59 165/78 145/74 O2 Sat by Pulse 94 L 96 Oximetry (%) 03/27/17 03/27/17 03/27/17 02:00 07:00 08:00 Temperature 98.8 F 98.2 F 97.4 F L Pulse Rate 62 68 66 Respiratory 20 20 20 Rate Blood Pressure 135/68 132/66 146/67 O2 Sat by Pulse Oximetry (%) 03/27/17 03/27/17 09:00 15:01 Temperature 98.4 F Pulse Rate 66 Respiratory 20 Rate Blood Pressure 120/62 O2 Sat by Pulse 99 Oximetry (%) Intake & Output 03/25/17 03/26/17 03/27/17 03/28/17 07:59 07:59 07:59 07:59 Intake Total 480 Balance 480 Weight 104 lb 121 lb nad, calm jvd flat, neck supple ctab, nl effort RRR nl s1 s2 no mrg no ttp of sternum + bs soft nt nd ext without e/c/c no carotid bruits aaox3 no jaundice, diaphoresis CBC, BMP 03/27/17 05:35 03/27/17 05:35 Laboratory Tests 03/27/17 05:35 Magnesium 1.9 Total Bilirubin 0.5 D AST 13 L ALT 17 Alkaline Phosphatase 63 Albumin 3.6 TSH 0.49 EKG: SR, leftward axis. no ischemic changes tele: SR, occ pvc. 71 y/o with h/o htn, HLD, DM, L- Breast Ca s/p xrt and surgery, Essential Thrombocytosis (on Hydroxyurea) who p/w CP. CP - CE's neg x 3. EKG unremarkable. symptoms atypical for cardiac pain, but given risk factors agree with pursuing stress testing. echo and stress test already ordered by primary team. - Con't asa. LDL 43 would not benefit from statin therapy. elevated tg's. --> diabetes management per pmd. switched bystolic to carvedilol. Can consider lovaza if stress test positive. htn - well controlled on current regimen. Hydralazine added overnight. hypertriglyceridemia - plan outlined above.
--- NOTE | 2017-03-27 21:49 | EKG ---
Test Reason : Blood Pressure : / mmHG Vent. Rate : 079 BPM Atrial Rate : 079 BPM P-R Int : 178 ms QRS Dur : 074 ms QT Int : 390 ms P-R-T Axes : 067 -20 042 degrees QTc Int : 447 ms POOR DATA QUALITY, INTERPRETATION MAY BE ADVERSELY AFFECTED NORMAL SINUS RHYTHM POSSIBLE LEFT ATRIAL ENLARGEMENT BORDERLINE ECG WHEN COMPARED WITH ECG OF 16-JAN-2015 10:27, NO SIGNIFICANT CHANGE WAS FOUND Confirmed by EZE LANDON MD ([id number]) on 03/27/2017 9:49:07 PM Referred By: Confirmed By:EZE LANDON MD
[2017-03-27 21:51] LABS: URINE APPEARANCE CLEAR; URINE BILIRUBIN NEGATIVE (NEGATIVE); URINE BLOOD NEGATIVE (NEGATIVE); URINE COLOR STRAW; URINE GLUCOSE (UA) NEGATIVE (NEGATIVE); URINE KETONE NEGATIVE (NEGATIVE); URINE LEUK ESTERASE NEGATIVE (NEGATIVE); URINE NITRITE NEGATIVE (NEGATIVE); URINE PROTEIN NEGATIVE (NEGATIVE); URINE UROBILINOGEN NEGATIVE E.U./dl (0.2-1.0)
[2017-03-28] MEDS: hydrALAZINE HCL 10 MG TABLET PO SCH ×2 (05:59→14:40)
[2017-03-28] MEDS: INSULIN SLIDING SCALE (NOVOLOG) 1 VIAL SQ SCH ×3 (06:00→17:23)
[2017-03-28 07:49] LABS: BASOPHIL 0.5 % (0-2.0); EOSINOPHIL 3.9 % (0-4.5); MCH 34.3 pg (25.7-33.7); MCHC 33.4 g/dl (32.0-36.0); MEAN CELL VOLUME 102.9 fl (80-96); MEAN PLT VOLUME 9.3 fl (7.5-11.1); PLATELET COUNT 425 K/MM3 (134-434); RDW 19.3 % (11.6-15.6); WHITE BLOOD COUNT 4.8 K/mm3 (4.0-10.0)
[2017-03-28 08:40] LABS: ALBUMIN 3.9 g/dl (3.4-5.0); ALK PHOS 69 U/L (45-117); ANION GAP 9 (8-16); BILIRUBIN,TOTAL 0.6 mg/dL (0.2-1.0); CALCIUM 8.7 mg/dL (8.5-10.1); CO2 26 mmol/L (21-32); CREATININE 1.1 mg/dL (0.55-1.02); GLUCOSE,RANDOM 210 mg/dL (74-106); MAGNESIUM 2.3 mg/dL (1.8-2.4); SGOT/AST 13 U/L (15-37); SGPT/ALT 18 U/L (12-78); TOT PROT 7.5 g/dl (6.4-8.2)
[2017-03-28] MEDS ORDERED: WATER IVPB ONE ×2 (10:00→10:45)
[2017-03-28] MEDS ORDERED: CARVEDILOL 3.125 MG TABLET (FP) PO SCH (10:00)
[2017-03-28] MEDS ORDERED: DEXTROSE 5% IVPB ONE ×2 (10:00→10:45)
[2017-03-28] MEDS ORDERED: HYDROXYUREA 500 MG CAPSULE PO SCH (10:00)
[2017-03-28] MEDS ORDERED: DIPYRIDAMOLE STRESS TEST IVPB ONE ×2 (10:00→10:45)
[2017-03-28] MEDS ORDERED: AMINOPHYLLINE 250 MG/10 ML VIAL ONE (14:23)
[2017-03-28] MEDS: VALSARTAN 160 MG TABLET (UD) PO SCH (14:39)
[2017-03-28] MEDS: ASPIRIN 81 MG CHEWABLE TABLETS PO SCH (14:39)
[2017-03-28] MEDS: PANTOPRAZOLE 40 MG TABLET (FP) PO SCH (14:40)
[2017-03-28] MEDS: MULTIVITAMINS (DAILY MVI) TABLET (FP) PO SCH (14:40)
[2017-03-28] MEDS: amLODIPine BESYLATE 10 MG TABLET (FP) PO SCH (14:41)
[2017-03-28] MEDS: HEPARIN NA (PORCINE) 5,000 UNITS/ML 1ML VIAL SQ SCH (14:42)
[2017-03-28 15:27] VITALS: BP 170/76; PULSE 79; TEMP 97.7
--- NOTE | 2017-03-28 16:02 | PN ---
Physical Exam: SUBJECTIVE: Patient seen and examined. She denies any further chest pain. Denies any shortness of breath. OBJECTIVE: Vital Signs Period Temp Pulse Resp BP Sys/Mazariegos Pulse Ox Last 24 Hr 97.7 F-98.5 F 66-79 14-20 151-170/64-77 96-96 GENERAL: The patient is awake, alert, and fully oriented, in no acute distress. HEAD: Normal with no signs of trauma. EYES: PERRL, extraocular movements intact, sclera anicteric, conjunctiva clear. No ptosis. ENT: Ears normal, nares patent, oropharynx clear without exudates, moist mucous membranes. NECK: Trachea midline, full range of motion, supple. LUNGS: Breath sounds equal, clear to auscultation bilaterally, no wheezes, no crackles, no accessory muscle use. HEART: Regular rate and rhythm, S1, S2 without murmur, rub or gallop. ABDOMEN: Soft, nontender, nondistended, normoactive bowel sounds, no guarding, no rebound, no hepatosplenomegaly, no masses. EXTREMITIES: 2+ pulses, warm, well-perfused, no edema. NEUROLOGICAL:Normal speech, gait not observed. PSYCH: Normal mood, normal affect. SKIN: Warm, dry, normal turgor, no rashes or lesions noted Laboratory Results - last 24 hr 03/27/17 03/27/17 03/27/17 16:44 21:00 21:20 WBC RBC Hgb Hct MCV MCHC RDW Plt Count MPV Neutrophils % Lymphocytes % Monocytes % Eosinophils % Basophils % Sodium Potassium Chloride Carbon Dioxide Anion Gap BUN Creatinine Creat Clearance w eGFR POC Glucometer 174 200 Random Glucose Calcium Magnesium Total Bilirubin AST ALT Alkaline Phosphatase Total Protein Albumin Urine Color Straw Urine Appearance Clear Urine pH 6.0 Ur Specific [place] <= 1.005 Urine Protein Negative Urine Glucose (UA) Negative Urine Ketones Negative Urine Blood Negative Urine Nitrite Negative Urine Bilirubin Negative Urine Urobilinogen Negative Ur Leukocyte Esterase Negative 03/28/17 03/28/17 03/28/17 05:21 05:57 05:57 WBC 4.8 RBC 3.08 L Hgb 10.6 L Hct 31.7 L MCV 102.9 H MCHC 33.4 RDW 19.3 H Plt Count 425 MPV 9.3 Neutrophils % 72.0 Lymphocytes % 19.8 Monocytes % 3.8 Eosinophils % 3.9 D Basophils % 0.5 Sodium 139 Potassium 4.7 Chloride 104 Carbon Dioxide 26 Anion Gap 9 BUN 25 H Creatinine 1.1 H Creat Clearance w eGFR 48.69 POC Glucometer 212 Random Glucose 210 H Calcium 8.7 Magnesium 2.3 D Total Bilirubin 0.6 AST 13 L ALT 18 Alkaline Phosphatase 69 Total Protein 7.5 Albumin 3.9 Urine Color Urine Appearance Urine pH Ur Specific [place] Urine Protein Urine Glucose (UA) Urine Ketones Urine Blood Urine Nitrite Urine Bilirubin Urine Urobilinogen Ur Leukocyte Esterase 03/28/17 14:11 WBC RBC Hgb Hct MCV MCHC RDW Plt Count MPV Neutrophils % Lymphocytes % Monocytes % Eosinophils % Basophils % Sodium Potassium Chloride Carbon Dioxide Anion Gap BUN Creatinine Creat Clearance w eGFR POC Glucometer 220 Random Glucose Calcium Magnesium Total Bilirubin AST ALT Alkaline Phosphatase Total Protein Albumin Urine Color Urine Appearance Urine pH Ur Specific [place] Urine Protein Urine Glucose (UA) Urine Ketones Urine Blood Urine Nitrite Urine Bilirubin Urine Urobilinogen Ur Leukocyte Esterase Active Medications Generic Name Dose Route Start Last Admin Trade Name Fernandoq PRN Reason Stop Dose Admin Acetaminophen 650 mg 03/26/17 00:32 Tylenol - PO Q6H PRN FEVER OR PAIN Amlodipine Besylate 10 mg 03/26/17 10:00 03/28/17 14:41 Norvasc - PO 10 mg DAILY JULIA Administration Aspirin 81 mg 03/26/17 10:00 03/28/17 14:39 Asa - PO 81 mg DAILY JULIA Administration Carvedilol 3.125 mg 03/28/17 10:00 03/28/17 14:39 Coreg - PO 3.125 mg BID JULIA Administration Guaifenesin 10 ml 03/26/17 00:30 Diabetic Tussin Dm - PO Q6H PRN COUGH Heparin Sodium (Porcine) 5,000 unit 03/26/17 22:00 03/28/17 14:42 Heparin - SQ 5,000 unit BID JULIA Administration Hydralazine HCl 10 mg 03/26/17 22:00 03/28/17 14:40 Apresoline - PO 10 mg TID JULIA Administration Hydroxyurea 500 mg 03/26/17 10:00 03/27/17 09:11 Hydrea - PO 500 mg SuTuThSa@1000 JULIA Administration Hydroxyurea 500 mg 03/28/17 10:00 03/28/17 14:40 Hydrea - PO 500 mg MOWEFR@1000,2200 JULIA Administration Insulin Aspart 1 vial 03/25/17 22:00 03/28/17 14:39 Novolog Vial Sliding Scale - SQ 4 units ACHS JULIA Administration Protocol Multivitamins/Minerals/Vitamin C 1 tab 03/26/17 10:00 03/28/17 14:40 Tab-A-Vit - PO 1 tab DAILY JULIA Administration Pantoprazole Sodium 40 mg 03/27/17 10:00 03/28/17 14:40 Protonix - PO 40 mg DAILY JULIA Administration Valsartan 320 mg 03/26/17 10:00 03/28/17 14:39 Diovan - PO 320 mg DAILY JULIA Administration ASSESSMENT/PLAN: Patient is a71 year-old female with a significant past medical history of HLD, NIDDM, hypothyroidism, breast cancer (radiation, lobectomy x 2), essential thrombocytosis. She is s/p Zpack for Bronchitis. Cardiology: Chest pain/rule out ACS Assessment/Plan: troponins x 3 negative to date EKG reviewed which does not indicate acute ischemia Stress test shows small zone of apical thinning, normal left ventricular contraction with LV ejection fraction of 70% She denies further chest pain, shortness of breath Cardiology following Hypertension: Assessment/Plan: On Hydralazine 10mg PO TID, on Diovan carvedilol 3.125mg BID Monitor BP Endocrine: NIDDM - chronic Assessment/Plan: Novolog sliding scale coverage Hematology: Essential thrombocytosis Assessment/Plan: continue hydroxyurea F.E.N. Fluids: tolerating PO Electrolytes: monitor Nutrition: low NA DVT prophylaxis: subq heparin,ambulation Disposition: continues to require inpatient care. Full Code. Visit type - Emergency Visit Emergency Visit: Yes ED Registration Date: 03/25/17 Care time: The patient presented to the Emergency Department on the above date and was hospitalized for further evaluation of their emergent condition. - New Patient This patient is new to me today: Yes Date on this admission: 03/28/17 - Critical Care Critical Care patient: No - Discharge Referral Referred to [facility] Med P.C[facility] No
[2017-03-28] MEDS ORDERED: hydrALAZINE HCL 10 MG TABLET PO ONE (16:33)
--- NOTE | 2017-03-28 16:52 | DS ---
Physical Exam: SUBJECTIVE: Patient seen and examined. She denies any further chest pain. Denies any shortness of breath. OBJECTIVE: Vital Signs Period Temp Pulse Resp BP Sys/Mazariegos Pulse Ox Last 24 Hr 97.7 F-98.5 F 66-79 14-20 151-170/64-77 96-96 PHYSICAL EXAM GENERAL: The patient is awake, alert, and fully oriented, in no acute distress. HEAD: Normal with no signs of trauma. EYES: PERRL, extraocular movements intact, sclera anicteric, conjunctiva clear. ENT: Ears normal, nares patent, oropharynx clear without exudates, moist mucous membranes. NECK: Trachea midline, full range of motion, supple. LUNGS: Breath sounds equal, clear to auscultation bilaterally, no wheezes, no crackles, no accessory muscle use. HEART: Regular rate and rhythm, S1, S2 without murmur, rub or gallop. ABDOMEN: Soft, nontender, nondistended, normoactive bowel sounds, no guarding, no rebound, no hepatosplenomegaly, no masses. EXTREMITIES: 2+ pulses, warm, well-perfused, no edema. NEUROLOGICAL: Cranial nerves II through XII grossly intact. Normal speech, gait not observed. PSYCH: Normal mood, normal affect. SKIN: Warm, dry, normal turgor, no rashes or lesions noted. LABS Laboratory Results - last 24 hr 03/27/17 03/27/17 03/27/17 16:44 21:00 21:20 WBC RBC Hgb Hct MCV MCHC RDW Plt Count MPV Neutrophils % Lymphocytes % Monocytes % Eosinophils % Basophils % Sodium Potassium Chloride Carbon Dioxide Anion Gap BUN Creatinine Creat Clearance w eGFR POC Glucometer 174 200 Random Glucose Calcium Magnesium Total Bilirubin AST ALT Alkaline Phosphatase Total Protein Albumin Urine Color Straw Urine Appearance Clear Urine pH 6.0 Ur Specific [place] <= 1.005 Urine Protein Negative Urine Glucose (UA) Negative Urine Ketones Negative Urine Blood Negative Urine Nitrite Negative Urine Bilirubin Negative Urine Urobilinogen Negative Ur Leukocyte Esterase Negative 03/28/17 03/28/17 03/28/17 05:21 05:57 05:57 WBC 4.8 RBC 3.08 L Hgb 10.6 L Hct 31.7 L MCV 102.9 H MCHC 33.4 RDW 19.3 H Plt Count 425 MPV 9.3 Neutrophils % 72.0 Lymphocytes % 19.8 Monocytes % 3.8 Eosinophils % 3.9 D Basophils % 0.5 Sodium 139 Potassium 4.7 Chloride 104 Carbon Dioxide 26 Anion Gap 9 BUN 25 H Creatinine 1.1 H Creat Clearance w eGFR 48.69 POC Glucometer 212 Random Glucose 210 H Calcium 8.7 Magnesium 2.3 D Total Bilirubin 0.6 AST 13 L ALT 18 Alkaline Phosphatase 69 Total Protein 7.5 Albumin 3.9 Urine Color Urine Appearance Urine pH Ur Specific [place] Urine Protein Urine Glucose (UA) Urine Ketones Urine Blood Urine Nitrite Urine Bilirubin Urine Urobilinogen Ur Leukocyte Esterase 03/28/17 14:11 WBC RBC Hgb Hct MCV MCHC RDW Plt Count MPV Neutrophils % Lymphocytes % Monocytes % Eosinophils % Basophils % Sodium Potassium Chloride Carbon Dioxide Anion Gap BUN Creatinine Creat Clearance w eGFR POC Glucometer 220 Random Glucose Calcium Magnesium Total Bilirubin AST ALT Alkaline Phosphatase Total Protein Albumin Urine Color Urine Appearance Urine pH Ur Specific [place] Urine Protein Urine Glucose (UA) Urine Ketones Urine Blood Urine Nitrite Urine Bilirubin Urine Urobilinogen Ur Leukocyte Esterase HOSPITAL COURSE: Date of Admission:03/25/17 Date of Discharge: 03/28/17 ASSESSMENT/PLAN: Patient is a71 year-old female with a significant past medical history of HLD, NIDDM, hypothyroidism, breast cancer (radiation, lobectomy x 2), essential thrombocytosis. She is s/p Zpack for Bronchitis. Cardiology: Chest pain/ACS ruled out - resolved Assessment/Plan: troponins x 3 negative to date EKG reviewed which does not indicate acute ischemia Stress test shows small zone of apical thinning, normal left ventricular contraction with LV ejection fraction of 70% She denies further chest pain, shortness of breath Patient to follow with mayonnaise mixer within 1 month after discharge PCP follow up with Dr. Nova Hypertension - chronic Assessment/Plan: On Hydralazine 10mg PO TID, on Diovan 320mg daily carvedilol 3.125mg BID Monitor BP with PCP Endocrine: NIDDM - chronic Assessment/Plan: Novolog sliding scale coverage Hematology: Essential thrombocytosis Assessment/Plan: continue hydroxyurea Disposition: Cleared by cardiology for discharge with PCP follow up to monitor BP and cardiology follow up within 1 month after discharge. Full Code. Minutes to complete discharge: 60 Discharge Summary Reason For Visit: CHEST PAIN Current Active Problems Chest pain (Acute) DVT prophylaxis (Acute) Diabetes mellitus (Acute) Essential thrombocytosis (Acute) HTN (hypertension) (Acute) History of breast cancer (Acute) Hyperlipidemia (Acute) Osteoarthritis (Acute) Condition: Stable - Instructions Diet, Activity, Other Instructions: Mrs. Curly Ram: Please see your Primary physician within one week of discharge. Dr. Berhane Newby. Please call him for an appointment. Please make an appointment to see your mayonnaise mixer within 2 - 3 weeks for further workup and to monitor your heart. New Medicine: Coreq 3.125 twice per day, stop the Bystolic. The Coreq will replace the Bystolic. Hydralazine three times per day. Diovan 320mg per day Please have your blood pressure checked with your next appointment with PCP and take the new medicine as directed. Naomie Chambersolman Graham [employer] [phone] Referrals: Dulce Castillo MD [Staff Physician] - Berhane Vigil [Non Staff, Medical] - Disposition: HOME - Home Medications Comprehensive Discharge Medication List: Ambulatory Orders Acetaminophen [Tylenol .Regular Strength -] 650 mg PO Q6H PRN 03/26/17 Alendronate Sodium [Binosto] 70 mg PO ASDIR 03/26/17 Amlodipine Bes/Olmesartan Med [Felisha 10-40 mg Tablet] 1 each PO DAILY 03/26/17 Aspirin [ASA -] 81 mg PO DAILY 03/26/17 Benzonatate 200 mg PO TID PRN 03/26/17 Calcium Carbonate [Oysco-500] 500 mg PO BID 03/26/17 Hydroxyurea [Hydrea] 500 mg PO ASDIR 03/26/17 Linagliptin/Metformin HCl [Jentadueto 2.5 mg-1000 mg Tab] 1 each PO ASDIR Multivit-Min/Iron Fum/Folic AC [Iebpp-Hsgrdlc-Wpuisvrn Tablet] 1 each PO DAILY 03/26/17 Aspirin [ASA -] 81 mg PO DAILY tab.chew 03/28/17 Atorvastatin Ca [Lipitor] 40 mg PO HS #30 tablet 03/28/17 Carvedilol [Coreg -] 3.125 mg PO BID #60 tablet 03/28/17 Hydralazine HCl [Apresoline -] 10 mg PO TID #90 tablet 03/28/17 Hydroxyurea [Hydrea 500Mg Capsule -] 500 mg PO MOWEFR@1000,2200 #30 tab Valsartan [Diovan] 320 mg PO DAILY #90 tablet 03/28/17 This patient is new to me today: Yes Date on this admission: 03/28/17 Emergency Visit: Yes ED Registration Date: 03/25/17 Care time: The patient presented to the Emergency Department on the above date and was hospitalized for further evaluation of their emergent condition. Critical Care patient: No - Discharge Referral Referred to [facility] No
[2017-03-29] MEDS ORDERED: VALSARTAN 160 MG TABLET (UD) PO SCH (10:00)
== END 2017-03-28 18:47 | disposition home or self-care (01) ==
LOC: JER 16:07 → JERBED 20:22 → J4W 03-26 15:46
PROVIDERS: ADMIT Internal Medicine; ATTEND Nurse Practitioner Family
PROC: 3E033GC Introduction of Other Therapeutic Substance into Peripheral Vein, Percutaneous Approach (ICD-10-PCS; principal; 2017-03-25)
PROC: 3E013GC Introduction of Other Therapeutic Substance into Subcutaneous Tissue, Percutaneous Approach (ICD-10-PCS; 2017-03-25)
DX: R07.9 Chest pain, unspecified (principal); I10 Essential (primary) hypertension; E78.5 Hyperlipidemia, unspecified; E11.9 Type 2 diabetes mellitus without complications; E03.9 Hypothyroidism, unspecified; D47.3 Essential (hemorrhagic) thrombocythemia; Z85.3 Personal history of malignant neoplasm of breast; E78.1 Pure hyperglyceridemia; Z79.4 Long term (current) use of insulin; Z79.82 Long term (current) use of aspirin
CPT/HCPCS: 36415; 71010-TC; 78452-TC; 80048; 80053; 80061; 81003; 82550; 83036; 83721; 83735; 83880; 84100; 84443; 84484; 85025; 93005; 93010; 93017; 93306-TC; 99285-25; A9502; G0378; J1245; J1644; J8999

== ENCOUNTER 2017-12-05 14:52 | Emergency (ER) | payer OTHER ==
[2017-12-05 14:58] VITALS: BMI 18.4
--- NOTE | 2017-12-05 15:05 | PDOC ---
Rapid Medical Evaluation Chief Complaint: Respiratory Time Seen by Provider: 12/05/17 14:59 Medical Evaluation: Allergies Allergy/AdvReac Type Severity Reaction Status Date / Time No Known Allergies Allergy Verified 12/05/17 14:53 Vital Signs Temp Pulse Resp BP Pulse Ox 98.2 F 88 19 167/68 95 12/05/17 14:53 12/05/17 14:53 12/05/17 14:53 12/05/17 14:53 12/05/17 14:53 12/05/17 15:00 I have performed a brief in-person evaluation of this patient. The patient presents with a chief complaint of chest congestion, shortness of breath and productive coughing with yellowish phlegm x 1 week. Seen by pmd treated with cough syrup and antibiotic but states feeling more shortness of breath today and chest discomfort with coughing. Pertinent physical exam findings NAD lungs rales at bases bilaterally heart s1s2 abdomen: non tender + bowel sounds Ext: no pedal edema I have ordered the following: labs, chest xray The patient will proceed to the ED for further evaluation.
[2017-12-05 15:35] LABS: BASO % 0.6 % (0-2.0); EOS % 2.2 % (0-4.5); HEMATOCRIT 31.6 % (32.4-45.2); HEMOGLOBIN 10.8 GM/dL (10.7-15.3); LYMPH % 14.2 % (8-40); MCH 35.6 pg (25.7-33.7); MCHC 34.3 g/dl (32.0-36.0); MEAN CELL VOLUME 103.7 fl (80-96); MEAN PLT VOLUME 9.2 fl (7.5-11.1); MONO % 7.1 % (3.8-10.2); NEUT % 75.9 % (42.8-82.8); PLATELET COUNT 444 K/MM3 (134-434); RBC 3.05 M/mm3 (3.60-5.2); RDW 18.2 % (11.6-15.6); WHITE BLOOD COUNT 3.6 K/mm3 (4.0-10.0)
[2017-12-05 15:51] LABS: INR 1.19 (0.82-1.09); PROTHROMBIN TIME (PATIENT) 13.4 SEC (9.98-11.88)
[2017-12-05 15:53] LABS: ACTIVATED PTT 29.2 SECONDS (26.9-34.4)
[2017-12-05 15:56] LABS: ALK PHOS 44 U/L (45-117); ANION GAP 8 (8-16); BILIRUBIN,TOTAL 0.6 mg/dL (0.2-1.0); BLOOD UREA NITROGEN 24 mg/dL (7-18); CALCIUM 8.5 mg/dL (8.5-10.1); CHLORIDE 103 mmol/L (98-107); CO2 25 mmol/L (21-32); CREATININE 1.6 mg/dL (0.55-1.02); GLUCOSE,RANDOM 187 mg/dL (74-106); POTASSIUM 4.8 mmol/L (3.5-5.1); SGOT/AST 16 U/L (15-37); SGPT/ALT 22 U/L (12-78); SODIUM 136 mmol/L (136-145); TOT PROT 7.3 g/dl (6.4-8.2)
--- NOTE | 2017-12-05 17:20 | PDOC ---
History of Present Illness - General Chief Complaint: Respiratory Stated Complaint: CHEST TIGHTNESS Time Seen by Provider: 12/05/17 14:59 History Source: Patient Exam Limitations: Language Barrier - History of Present Illness Initial Comments: 12/05/17 17:13 Patient is a 72F with history of PAD (s/p stenting in legs bilaterally), HLD, DM , breast cancer s/p lumpectomy and radiation (treatment finished in 2007), essential thrombocytopenia here today complaining of flu like symptoms for the past week. She states that she's had cough, shortness of breath, chest congestion, phlegm production, fevers, chills, bodyaches, and headaches. She reports that her was sick before her. She had a flu shot in August. Denies chest pain. She states that she was diagnosed with a cold by her primary care physician and was given antibiotics, but has not improved. She just finished a z-pack. Past History - Past Medical History Allergies/Adverse Reactions: Allergies Allergy/AdvReac Type Severity Reaction Status Date / Time No Known Allergies Allergy Verified 12/05/17 14:53 Home Medications: Ambulatory Orders Alendronate Na [Fosamax] 70 mg PO Q7D 12/05/17 Amlodipine Besylate [Norvasc -] 10 mg PO DAILY 12/05/17 Aspirin [ASA -] 81 mg PO DAILY 12/05/17 Ca/D3/Mag Ox/Zinc/Sen[employer] Project [employer]/Marek/Bor [Calcium 600+D3 Plus Caplet] 1 each PO DAILY 02/17 Clopidogrel Bisulfate [Plavix] 75 mg PO DAILY 12/05/17 Guaifenesin/Dextromethorphan [Robafen Dm Cough Liquid] 10 ml PO QID PRN Hydroxyurea 1 cap PO ASDIR 12/05/17 Hydroxyurea 2 cap PO ASDIR 12/05/17 Linagliptin/Metformin HCl [Jentadueto 2.5 mg-1000 mg Tab] 1 each PO BID Losartan Potassium [Cozaar] 100 mg PO DAILY 12/05/17 Multivitamins [Tab-A-Vit -] 1 tab PO DAILY 12/05/17 Nebivolol [Bystolic -] 5 mg PO DAILY 12/05/17 Cancer: Yes (left breast mass 2007) COPD: No Diabetes: Yes HTN: Yes - Suicide/Smoking/Psychosocial Hx Smoking History: Never smoked Have you smoked in the past 12 months: No Hx Alcohol Use: No Drug/Substance Use Hx: No Substance Use Type: None Hx Substance Use Treatment: No Review of Systems - Review of Systems Comments:: 12/05/17 17:20 GENERAL/CONSTITUTIONAL: No fever or chills. No weakness. HEAD, EYES, EARS, NOSE AND THROAT: No change in vision. No sore throat. CARDIOVASCULAR: Positive for chest pain and shortness of breath RESPIRATORY: Positive for cough. Negative for wheezing, or hemoptysis. GASTROINTESTINAL: Positive for nausea. Negative for vomiting, diarrhea or constipation. GENITOURINARY: No dysuria, frequency, or change in urination. MUSCULOSKELETAL: Positive for diffuse body aches. SKIN: No rash NEUROLOGIC: Positive for headache. Negative for vertigo, loss of consciousness, or change in strength/sensation. ENDOCRINE: No increased thirst. No abnormal weight change HEMATOLOGIC/LYMPHATIC: No anemia, easy bleeding, or history of blood clots. ALLERGIC/IMMUNOLOGIC: No hives or skin allergy. *Physical Exam - Vital Signs Last Vital Signs Temp Pulse Resp BP Pulse Ox 98.2 F 88 19 167/68 95 12/05/17 14:53 12/05/17 14:53 12/05/17 14:53 12/05/17 14:53 12/05/17 14:53 - Physical Exam Comments: 12/05/17 17:21 GENERAL: Awake, alert, and fully oriented, in no acute distress HEAD: No signs of trauma, normocephalic, atraumatic EYES: PERRLA, EOMI, sclera anicteric, conjunctiva clear ENT: Auricles normal inspection, hearing grossly normal, nares patent, oropharynx clear without exudates. Moist mucosa NECK: Normal ROM, supple, no lymphadenopathy, JVD, or masses LUNGS: No distress, speaks full sentences, bilateral rhonchi HEART: Regular rate and rhythm, normal S1 and S2, no murmurs, rubs or gallops, peripheral pulses normal and equal bilaterally. ABDOMEN: Soft, nontender, normoactive bowel sounds. No guarding, no rebound. No masses EXTREMITIES: Normal inspection, Normal range of motion, no edema. No clubbing or cyanosis. NEUROLOGICAL: Cranial nerves II through XII grossly intact. Normal speech, no focal sensorimotor deficits SKIN: Warm, Dry, normal turgor, no rashes or lesions noted. ED Treatment Course - LABORATORY CBC & Chemistry Diagram: 12/05/17 15:13 12/05/17 15:13 - ADDITIONAL ORDERS Additional order review: Laboratory Results 12/05/17 12/05/17 12/05/17 15:13 15:13 15:13 PT with INR 13.40 H INR 1.19 H PTT (Actin FS) 29.2 Sodium 136 Potassium 4.8 Chloride 103 Carbon Dioxide 25 Anion Gap 8 BUN 24 H Creatinine 1.6 H Creat Clearance w eGFR 31.51 Random Glucose 187 H Calcium 8.5 Total Bilirubin 0.6 AST 16 ALT 22 Alkaline Phosphatase 44 L Creatine Kinase 84 Troponin I < 0.02 Total Protein 7.3 Albumin 4.0 12/05/17 15:13 RBC 3.05 L MCV 103.7 H MCHC 34.3 RDW 18.2 H MPV 9.2 Neutrophils % 75.9 Lymphocytes % 14.2 D Monocytes % 7.1 D Eosinophils % 2.2 Basophils % 0.6 Medical Decision Making - Medical Decision Making 12/05/17 17:21 Patient is 72F with history of DM, HTN, HLD, breast cancer, PAD here today complaining of cough, fever, bodyaches. Vital signs stable and normal, SpO2 dropped to 90% in exam room. Will treat with duonebs. Will evaluate with cbc, cmp, cxr, ekg, trop, pt/inr. DDx includes, but is not limited to: pneumonia, bronchitis, copd. 12/05/17 17:24 Laboratory Tests 12/05/17 12/05/17 12/05/17 15:13 15:13 15:13 WBC 3.6 L Hgb 10.8 Hct 31.6 L Plt Count 444 H INR 1.19 H BUN 24 H Creatinine 1.6 H Troponin I 12/05/17 15:13 WBC Hgb Hct Plt Count INR BUN Creatinine Troponin I < 0.02 CBC shows white count less than 4, elevated platelets. Kidney function decreased. Trop negative. EKG, CXR pending. 12/05/17 17:37 EKG shows normal sinus rhythm, rate 83. No st elevation/depression. Left axis deviation. No significant t wave abnormalities. No st elevation/depression. Normal [place], QRS QTc intervals. 12/05/17 18:22 CXR shows mild pulmonary vascular congestion, no consolidation. Patient lung testing sounds slightly improved. PCP - Dr Vigil. Patient has received azithromycin. Will give steroids for possible bronchitis. Patient also possibly has mild CHF. Patient instructed to call Dr Vigil tomorrow to set up appointment. *DC/Admit/Observation/Transfer Diagnosis at time of Disposition: Bronchitis - Discharge Dispostion Disposition: HOME Condition at time of disposition: Good Admit: No - Referrals - Patient Instructions Printed Discharge Instructions: DI for Acute Bronchitis Additional Instructions: [place] al Dr. Odin barragan para matthew frannie. Por favor regrese al departamento de emergencias si se siente peor Print Language: GUINEAN - Post Discharge Activity
[2017-12-05] MEDS ORDERED: ALBUTEROL SO4 2.5/IPRATROPIUM 0.5 INH SOL 3 ML VIAL.NEB. NEB ONE ×2 (17:21→17:22)
[2017-12-05 17:30] VITALS: PULSE 89
--- NOTE | 2017-12-05 17:44 | PDOC ---
Attending Attestation - Resident Resident Name: Damian Wheeler - ED Attending Attestation I have performed the following: I have examined & evaluated the patient, The case was reviewed & discussed with the resident, I agree w/resident's findings & plan, Exceptions are as noted - HPI HPI: 12/05/17 17:44 72 yo female has had coughing and congestion for past week. ROS positive for bodyaches,cough,nausea 12/05/17 17:45 12/05/17 17:46 thin 72 yo female in no acute distress head ncat neck supple throat no exudates lungs b/l rhonchi cvr [id number] abd soft no rebound ext no edema neuro axox3, ambulatory skin warm and dry psych appropriate - Physicial Exam PE: 12/06/17 16:39 thin 72 yo female with complaint of cough - Medical Decision Making 12/05/17 17:48 plan cxr,cbc,comp r/o pneumonia 12/05/17 18:53 cxr no infiltrates but mild vascular congestion neg troponin pt is going to be discharged on 3 days on steroids and instructed to followup with PCP this week
[2017-12-05] MEDS ORDERED: predniSONE 20 MG TABLET (UD) PO ONE (18:27)
[2017-12-05] MEDS ORDERED: FUROSEMIDE 40 MG TABLET (FP) PO ONE (18:27)
[2017-12-05] MEDS ORDERED: predniSONE 20 MG TABLET (UD) ONE (18:38)
[2017-12-05] MEDS ORDERED: FUROSEMIDE 40 MG TABLET (FP) ONE (18:38)
[2017-12-05 18:52] VITALS: BP 159/89; TEMP 98.4
--- NOTE | 2017-12-06 14:20 | EKG ---
Test Reason : Blood Pressure : / mmHG Vent. Rate : 083 BPM Atrial Rate : 083 BPM P-R Int : 166 ms QRS Dur : 072 ms QT Int : 372 ms P-R-T Axes : 070 -34 064 degrees QTc Int : 437 ms NORMAL SINUS RHYTHM POSSIBLE LEFT ATRIAL ENLARGEMENT LEFT AXIS DEVIATION INFERIOR INFARCT , AGE UNDETERMINED ABNORMAL ECG Confirmed by MD Kim Edward ([id number]) on 12/06/2017 2:20:26 PM Referred By: Confirmed By:Paulino Kim MD
== END 2017-12-05 18:53 | disposition home or self-care (01) ==
LOC: SUPCPDRO 14:52 → JER 14:52
PROC: 3E0F7GC Introduction of Other Therapeutic Substance into Respiratory Tract, Via Natural or Artificial Opening (ICD-10-PCS; principal; 2017-12-05)
DX: J20.9 Acute bronchitis, unspecified (principal); I73.9 Peripheral vascular disease, unspecified; E78.5 Hyperlipidemia, unspecified; E11.9 Type 2 diabetes mellitus without complications; D69.6 Thrombocytopenia, unspecified; Z95.828 Presence of other vascular implants and grafts; Z85.3 Personal history of malignant neoplasm of breast; Z92.3 Personal history of irradiation; Z79.82 Long term (current) use of aspirin; Z79.01 Long term (current) use of anticoagulants
CPT/HCPCS: 36415; 71046-TC-FY; 80053; 82550; 84484; 85025; 85610; 85730; 93005; 93010; 99283-25

== ENCOUNTER 2022-01-09 10:47 | Day surgery (SDC) | payer OTHER ==
[2022-01-09] MEDS ORDERED: FERRIC CARBOXYMALTOSE 750 MG in SODIUM CHLORIDE 250 ML IVPB SCH (11:30)
[2022-01-09 12:26] VITALS: BP 165/61; PULSE 81; TEMP 97.8
== END 2022-01-09 12:35 | disposition home or self-care (01) ==
LOC: FINFUSION 10:47 → FM/S 10:50 → FINFUSION 12:35
PROVIDERS: ATTEND Family Medicine
PROC: 3E033GC Introduction of Other Therapeutic Substance into Peripheral Vein, Percutaneous Approach (ICD-10-PCS; principal; 2022-01-09)
DX: F50.9 Eating disorder, unspecified (principal)
CPT/HCPCS: 96365; J1439

== ENCOUNTER 2022-01-16 11:04 | Day surgery (SDC) | payer OTHER ==
[2022-01-16 11:37] VITALS: PULSE 78; TEMP 97.8
[2022-01-16] MEDS ORDERED: FERRIC CARBOXYMALTOSE 750 MG in SODIUM CHLORIDE 250 ML IVPB SCH (11:45)
[2022-01-16 13:14] VITALS: BP 160/58
== END 2022-01-16 12:45 | disposition home or self-care (01) ==
LOC: FINFUSION 11:04 → FM/S 11:07 → FINFUSION 12:45
PROVIDERS: ATTEND Family Medicine
PROC: 3E033GC Introduction of Other Therapeutic Substance into Peripheral Vein, Percutaneous Approach (ICD-10-PCS; principal; 2022-01-16)
DX: D50.9 Iron deficiency anemia, unspecified (principal)
CPT/HCPCS: 96365; J1439

== ENCOUNTER 2022-01-29 08:46 | Emergency (ER) | payer OTHER ==
[2022-01-29 08:53] VITALS: BP 173/59; PULSE 86; TEMP 97.2; BMI 17.8
[2022-01-29] MEDS ORDERED: ACETAMINOPHEN 500 MG TABLET (FP) PO ONE (09:45)
[2022-01-29] MEDS ORDERED: ACETAMINOPHEN 325 MG TABLET (FP) ONE (10:06)
[2022-01-29 13:09] LABS: HEMATOCRIT 35.3 % (32.4-45.2); MCH 35.2 pg (25.7-33.7); MCHC 33.9 g/dl (32.0-36.0); MEAN CELL VOLUME 103.8 fl (80-96); MEAN PLT VOLUME 8.9 fl (7.5-11.1); PLATELET COUNT 421 10^3/uL (134-434); RDW 21.2 % (11.6-15.6); WHITE BLOOD COUNT 7.6 K/mm3 (4.0-10.0)
[2022-01-29 13:36] LABS: CALCIUM 8.7 mg/dL (8.5-10.1)
[2022-01-29 13:37] LABS: ALBUMIN 4.2 g/dl (3.4-5.0); BLOOD UREA NITROGEN 27.7 mg/dL (7-18)
[2022-01-29 13:41] LABS: BILIRUBIN,TOTAL 0.9 mg/dL (0.2-1); TOT PROT 7.2 g/dl (6.4-8.2)
[2022-01-29 14:09] LABS: ANISOCYTOSIS 1+; MACROCYTOSIS 2+; OVALOCYTE 1+
[2022-01-29] MEDS ORDERED: GABAPENTIN 100 MG CAPSULE PO ONE (16:41)
[2022-01-29] MEDS ORDERED: GABAPENTIN 100 MG CAPSULE ONE (16:54)
== END 2022-01-29 17:20 | disposition home or self-care (01) ==
LOC: JER 08:46
DX: E11.621 Type 2 diabetes mellitus with foot ulcer (principal); L97.519 Non-pressure chronic ulcer of other part of right foot with unspecified severity; L97.529 Non-pressure chronic ulcer of other part of left foot with unspecified severity
CPT/HCPCS: 36415; 73610-TC-LT-FY; 73610-TC-RT-FY; 73630-TC-LT; 73630-TC-RT-FY; 80053; 85025; 99284-25

== ENCOUNTER 2023-05-12 12:19 | Inpatient (IN) | payer OTHER ==
[2023-05-12 12:44] VITALS: BMI 18.0
[2023-05-12] MEDS ORDERED: ACETAMINOPHEN 500 MG TABLET (FP) PO ONE (12:58)
[2023-05-12] MEDS ORDERED: CEFTRIAXONE 1 GM in DEXTROSE 5%-WATER - 100 ML IVPB ONE (13:36)
[2023-05-12] MEDS ORDERED: AZITHROMYCIN IVPB 500 MG in DEXTROSE 5%-WATER - 250 ML IVPB ONE (13:36)
[2023-05-12] MEDS ORDERED: ACETAMINOPHEN 325 MG TABLET (FP) ONE (14:09)
[2023-05-12] MEDS ORDERED: AZITHROMYCIN 500 MG VIAL IVPB ONE (14:10)
[2023-05-12] MEDS ORDERED: cefTRIAXone SODIUM 1 GM VIAL ONE (14:10)
[2023-05-12 14:20] LABS: HEMATOCRIT 27.2 % (32.4-45.2); HEMOGLOBIN 8.9 G/dL (10.7-15.3); MCH 34.8 pg (25.7-33.7); MCHC 32.8 g/dl (32.0-36.0); MEAN CELL VOLUME 106.2 fl (80-96); MEAN PLT VOLUME 8.8 fl (7.5-11.1); PLATELET COUNT 194.9 10^3/uL (134-434); RBC 2.56 10^6/uL (3.60-5.2); WHITE BLOOD COUNT 4.6 10^3/uL (4.0-10.8)
[2023-05-12 14:24] LABS: PLATELET ESTIMATE ADEQUATE
[2023-05-12 14:43] LABS: ALBUMIN 4.5 g/dl (3.4-5.0); BILIRUBIN,TOTAL 1.6 mg/dl (0.2-1); BLOOD UREA NITROGEN 29.8 mg/dl (7-18); CALCIUM 8.7 mg/dl (8.5-10.1); CREATININE 1.4 mg/dl (0.6-1.3); POTASSIUM 4.6 mmol/L (3.5-5.1); SGPT/ALT 18.3 U/L (7-52); TOT PROT 6.7 g/dl (6.4-8.2)
[2023-05-12] MEDS ORDERED: ACETAMINOPHEN 325 MG TABLET (FP) PO PRN (16:01)
[2023-05-12] MEDS ORDERED: SODIUM CHLORIDE 1,000 ML with POTASSIUM CHLORIDE 20 MEQ IV SCH (16:15)
[2023-05-12 17:42] LABS: EPITHELIAL CELLS FEW /hpf
[2023-05-12] MEDS ORDERED: REMDESIVIR 200 MG in SODIUM CHLORIDE 250 ML IVPB ONE (18:00)
[2023-05-12] MEDS: HEPARIN NA (PORCINE) 5,000 UNITS/ML 1ML VIAL SQ SCH (21:40)
[2023-05-12] MEDS: INSULIN (NOVOLOG) ASPART 100 UNITS/ML 10ML VIAL SQ SCH ×2 (21:45)
[2023-05-12] MEDS: SODIUM CHLORIDE 1,000 ML IV SCH (21:49)
[2023-05-13] MEDS: HEPARIN NA (PORCINE) 5,000 UNITS/ML 1ML VIAL SQ SCH ×3 (06:04→21:16)
[2023-05-13] MEDS: SODIUM CHLORIDE 1,000 ML IV SCH ×2 (06:14→17:02)
[2023-05-13] MEDS: INSULIN (NOVOLOG) ASPART 100 UNITS/ML 10ML VIAL SQ SCH ×4 (06:14→21:15)
[2023-05-13 07:59] LABS: ALBUMIN 3.8 g/dl (3.4-5.0); BILIRUBIN,TOTAL 0.7 mg/dl (0.2-1); CALCIUM 7.8 mg/dl (8.5-10.1); CREATININE 1.2 mg/dl (0.6-1.3); MAGNESIUM 1.6 mg/dL (1.8-2.4); SGOT/AST 20.3 U/L (15-37); TOT PROT 5.8 g/dl (6.4-8.2)
[2023-05-13] MEDS ORDERED: MAGNESIUM SULF 50% (8.12 MEQ/2 ML-1 GM VIAL) IVPB ONE (08:24)
[2023-05-13 09:24] LABS: HEMATOCRIT 22.4 % (32.4-45.2); HEMOGLOBIN 7.4 GM/dL (10.7-15.3); MCH 33.8 pg (25.7-33.7); MEAN CELL VOLUME 102.4 fl (80-96); MEAN PLT VOLUME 9.4 fl (7.5-11.1); PLATELET COUNT 184 10^3/uL (134-434); RBC 2.19 M/mm3 (3.60-5.2); RDW 19.6 % (11.6-15.6)
[2023-05-13 10:08] LABS: ANISOCYTOSIS 3+; MACROCYTOSIS 0; OVALOCYTE 1+
[2023-05-13] MEDS ORDERED: IRON SUCROSE INJECTION 200 MG in SODIUM CHLORIDE 90 ML IVPB ONE (16:30)
[2023-05-13] MEDS ORDERED: MAGNESIUM OXIDE 400 MG TABLET (FP) PO ONE (18:03)
[2023-05-13] MEDS ORDERED: REMDESIVIR 100 MG in SODIUM CHLORIDE 250 ML IVPB SCH (20:00)
[2023-05-14] MEDS: INSULIN (NOVOLOG) ASPART 100 UNITS/ML 10ML VIAL SQ SCH ×4 (06:55→21:22)
[2023-05-14] MEDS: HEPARIN NA (PORCINE) 5,000 UNITS/ML 1ML VIAL SQ SCH ×3 (06:55→21:22)
[2023-05-14] MEDS ORDERED: REMDESIVIR 100 MG in SODIUM CHLORIDE 250 ML IVPB SCH ×2 (08:11→20:00)
[2023-05-14 08:25] LABS: HEMATOCRIT 23.8 % (32.4-45.2); HEMOGLOBIN 7.6 G/dL (10.7-15.3); MCH 33.8 pg (25.7-33.7); MCHC 31.9 g/dl (32.0-36.0); MEAN CELL VOLUME 105.8 fl (80-96); MEAN PLT VOLUME 9.2 fl (7.5-11.1); PLATELET COUNT 226.7 10^3/uL (134-434); RBC 2.25 10^6/uL (3.60-5.2); RDW 17.6 % (11.6-15.6); WHITE BLOOD COUNT 3.3 10^3/uL (4.0-10.8)
[2023-05-14 08:41] LABS: BLOOD UREA NITROGEN 22.9 mg/dl (7-18); CALCIUM 8.1 mg/dl (8.5-10.1); CREATININE 1.1 mg/dl (0.6-1.3); POTASSIUM 4.4 mmol/L (3.5-5.1)
[2023-05-14] MEDS ORDERED: REFRIGERATED ANITBIOTICS ONE (19:30)
[2023-05-15] MEDS: HEPARIN NA (PORCINE) 5,000 UNITS/ML 1ML VIAL SQ SCH (06:36)
[2023-05-15] MEDS: INSULIN (NOVOLOG) ASPART 100 UNITS/ML 10ML VIAL SQ SCH ×2 (06:37→11:33)
[2023-05-15 11:40] VITALS: BP 144/66; PULSE 95; RESP 18; TEMP 97.9
== END 2023-05-15 12:58 | disposition home or self-care (01) | DRG 179 ==
LOC: FER 12:19 → FM/S 15:31 → OBSVTOIN 16:01
PROVIDERS: ADMIT Family Medicine; ATTEND Family Medicine
PROC: XW033E5 Introduction of Remdesivir Anti-infective into Peripheral Vein, Percutaneous Approach, New Technology Group 5 (ICD-10-PCS; principal; 2023-05-12)
DX: U07.1 COVID-19 (principal); E11.51 Type 2 diabetes mellitus with diabetic peripheral angiopathy without gangrene; E78.5 Hyperlipidemia, unspecified; I10 Essential (primary) hypertension; D64.9 Anemia, unspecified; R80.9 Proteinuria, unspecified; E83.42 Hypomagnesemia; Z85.3 Personal history of malignant neoplasm of breast; M19.90 Unspecified osteoarthritis, unspecified site
CPT/HCPCS: 0241U-QW; 36415; 71045-TC-FY; 80048; 80053; 81003; 81015; 82272; 82570; 82728; 82962; 83540; 83550; 83735; 84156; 84466; 85025; 85027; 85045; 86140; 87040; 87086; 87899; 93005; 99285-25; C9399; G0378; J1644; J1756

== ENCOUNTER 2023-05-22 12:20 | Emergency (ER) | payer OTHER ==
[2023-05-22 12:25] VITALS: BP 114/75; PULSE 91; RESP 18; TEMP 98.6; BMI 20.5
== END 2023-05-22 14:26 | disposition home or self-care (01) ==
LOC: JER 12:20
DX: S91.101A Unspecified open wound of right great toe without damage to nail, initial encounter (principal)
CPT/HCPCS: 99282-25